=== PATIENT | male | born 1995 | race Two or more races ===

== ENCOUNTER 2020-07-24 22:50 | Emergency (ER) | payer OTHER ==
[~2020-07-24] VITALS: Ht 172.7 cm; Wt 72.7 kg
[2020-07-24] MEDS ORDERED: KETOROLAC TROMETHAMINE 30 MG/ML VIAL IM ONE (23:30)
[2020-07-24] MEDS ORDERED: PERTUSS(ACELL),DIPH,TET VAC/PF 0.5 ML VIAL IM ONE (23:30)
[2020-07-25] MEDS ORDERED: LIDOCAINE 1% 10 ML VIAL ONE (00:21)
[2020-07-25] MEDS ORDERED: POVIDONE-IODINE 10% 120 ML SOLUTION TP ONE (00:30)
[2020-07-25] MEDS ORDERED: LIDOCAINE 1% 10 ML VIAL INJ ONE (00:30)
[2020-07-25 02:00] VITALS: BP 118/79
== END 2020-07-25 02:30 | disposition home or self-care (01) ==
LOC: EDBD 22:50 → EMS 22:50
DX: S81.812A Laceration without foreign body, left lower leg, initial encounter (principal); S81.811A Laceration without foreign body, right lower leg, initial encounter; S81.011A Laceration without foreign body, right knee, initial encounter; S71.111A Laceration without foreign body, right thigh, initial encounter; F17.210 Nicotine dependence, cigarettes, uncomplicated; W22.8XXA Striking against or struck by other objects, initial encounter; Y93.89 Activity, other specified; Y92.89 Other specified places as the place of occurrence of the external cause; Y99.8 Other external cause status
CPT/HCPCS: 12007; 90471; 90715; 96372; 99284; J1885; J3490